=== PATIENT | female | born 1990 | race Caucasian/White ===

== ENCOUNTER 2017-01-17 19:57 | Emergency (ER) | payer MEDICARE, OTHER ==
[~2017-01-17] VITALS: Ht 167.6 cm; Wt 54.4 kg
[~2017-01-17 19:57] MED LIST: ACETAMINOPHEN500 MG PO; AMOXICILLIN500 MG PO; ANAPROX DS550 MG PO; ATIVAN1 MG PO; GEODON60 MG PO; GUAIATUSSIN AC10 ML PO; IBUPROFEN400 MG PO; K-TAB ER20 MEQ PO; OMEPRAZOLE20 MG PO; PROTONIX40 MG PO; PROZAC20 MG PO; TRAMADOL HCL50 MG PO; TRAZODONE HCL100 MG PO; ULTRAM50 MG PO; ZOFRAN ODT4 MG PO
[2017-01-17] MEDS ORDERED: SEROQUEL50 MG PO (20:06)
[2017-01-17] MEDS ORDERED: XANAX0.25 MG PO (20:06)
[2017-01-17] MEDS ORDERED: PROZAC20 MG PO (20:06)
--- NOTE | 2017-01-18 19:12 | EKG ---
[facility] [address] [facility] [place], [place] [address] Signed Sinus tachycardia Otherwise normal ECG No previous ECGs available Confirmed by KAITY HUDSON MD ([id number]) on 01/18/2017 7:12:09 PM Electronically Signed By: KAITY HUDSON MD 01/18/171911 PATIENT NAME: MARIXA HERNANDEZ Electrocardiogram DATE OF : [birth year] PHYSICIAN: KAITY HUDSON MD REPORT #: [id number] REPORT IS CONFIDENTIAL AND NOT TO BE RELEASED WITHOUT AUTHORIZATION
== END 2017-01-17 21:35 | disposition home or self-care (01) ==
LOC: ED 19:57
PROC: 0T9B70Z Drainage of Bladder with Drainage Device, Via Natural or Artificial Opening (ICD-10-PCS; principal; 2017-01-17)
DX: F10.10 Alcohol abuse, uncomplicated (principal); F12.10 Cannabis abuse, uncomplicated; F19.10 Other psychoactive substance abuse, uncomplicated; Y90.6 Blood alcohol level of 120-199 mg/100 ml; F32.9 Major depressive disorder, single episode, unspecified; F41.9 Anxiety disorder, unspecified; F17.200 Nicotine dependence, unspecified, uncomplicated; Z79.899 Other long term (current) drug therapy
CPT/HCPCS: 51701; 80053; 80176; 81001; 84443; 84703; 85025; 93005; 93010; 99284; G0480

== ENCOUNTER 2018-04-25 08:30 | Emergency (ER) | payer MEDICARE, OTHER ==
[~2018-04-25] VITALS: Ht 167.6 cm; Wt 53.5 kg
[~2018-04-25 08:30] MED LIST changes: +SEROQUEL50 MG PO; +XANAX0.25 MG PO
== END 2018-04-25 09:05 | disposition home or self-care (01) ==
LOC: ED 08:30
DX: R05 Cough (principal)

== ENCOUNTER 2018-08-08 16:43 | Emergency (ER) | payer MEDICARE, OTHER ==
[~2018-08-08] VITALS: Ht 167.6 cm; Wt 53.5 kg
[2018-08-08] MEDS ORDERED: ZITHROMAX250 MG PO (19:43)
--- NOTE | 2018-08-08 19:56 | EKG ---
[facility] [address] [facility] [place], [place] [address] Signed Normal sinus rhythm Normal ECG Confirmed by KAITY HUDSON MD ([id number]) on 08/08/2018 7:56:10 PM Electronically Signed By: KAITY HUDSON MD 08/08/181955 PATIENT NAME: MARIXA HERNANDEZ Electrocardiogram DATE OF : [birth year] PHYSICIAN: KAITY HUDSON MD REPORT #: [id number] REPORT IS CONFIDENTIAL AND NOT TO BE RELEASED WITHOUT AUTHORIZATION
== END 2018-08-08 19:48 | disposition home or self-care (01) ==
LOC: ED 16:43
DX: T40.1X1A Poisoning by heroin, accidental (unintentional), initial encounter (principal); J96.90 Respiratory failure, unspecified, unspecified whether with hypoxia or hypercapnia; J69.0 Pneumonitis due to inhalation of food and vomit; F13.10 Sedative, hypnotic or anxiolytic abuse, uncomplicated; F32.9 Major depressive disorder, single episode, unspecified; F41.9 Anxiety disorder, unspecified; F17.200 Nicotine dependence, unspecified, uncomplicated
CPT/HCPCS: 71045; 80053; 84484; 85025; 93005; 93010; 96360; 96361; 99284-25; G0480; J7030

== ENCOUNTER 2018-12-14 13:27 | Emergency (ER) | payer MEDICARE, OTHER ==
[~2018-12-14] VITALS: Ht 167.6 cm; Wt 53.5 kg
[~2018-12-14 13:27] MED LIST changes: +ZITHROMAX250 MG PO
[2018-12-14] MEDS ORDERED: FLUOXETINE HCL20 MG PO (13:47)
[2018-12-14] MEDS ORDERED: QUETIAPINE FUMA50 MG PO (13:47)
[2018-12-14] MEDS ORDERED: NARCAN4 MG NAS (15:05)
--- NOTE | 2018-12-15 13:56 | EKG ---
[facility] [address] [facility] [place], [place] [address] Signed Sinus tachycardia Possible Left atrial enlargement Borderline ECG When compared with ECG of 08-AUG-2018 17:31, No significant change was found Confirmed by DWIGHT SHARMA DO ([id number]) on 12/15/2018 1:56:12 PM Electronically Signed By: DWIGHT SHARMA DO 12/15/18 1356 PATIENT NAME: MARIXA HERNANDEZ Electrocardiogram DATE OF : [birth year] PHYSICIAN: DWIGHT SHARMA DO REPORT #: [id number] REPORT IS CONFIDENTIAL AND NOT TO BE RELEASED WITHOUT AUTHORIZATION
== END 2018-12-14 16:20 | disposition home or self-care (01) ==
LOC: ED 13:27
DX: T40.1X1A Poisoning by heroin, accidental (unintentional), initial encounter (principal); F17.200 Nicotine dependence, unspecified, uncomplicated; F32.9 Major depressive disorder, single episode, unspecified; F41.9 Anxiety disorder, unspecified; Z79.899 Other long term (current) drug therapy
CPT/HCPCS: 71045; 93005; 93010; 99284-25

== ENCOUNTER 2019-07-28 09:46 | Emergency (ER) | payer MEDICARE, OTHER ==
[~2019-07-28] VITALS: Ht 167.6 cm; Wt 53.5 kg
[~2019-07-28 09:46] MED LIST changes: +FLUOXETINE HCL20 MG PO; +NARCAN4 MG NAS; +QUETIAPINE FUMA50 MG PO
--- OUTSIDE RECORDS SUMMARY | 2019-07-28 09:48 | XMS ---
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 [place] has no Care Guidelines for this patient. Kalyn VISIT COUNT (12 MO.) 3 [facility] TOTAL 3 NOTE: Visits indicate total known visits. 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 08/08/2018 16:43 [facility] [place] TYPE: Emergency COMPLAINT: - OD DIAGNOSES: - Major depressive disorder, single episode, unspecified - Poisoning by heroin, accidental (unintentional), initial enco - Nicotine dependence, unspecified, uncomplicated - Pneumonitis due to inhalation of food and vomit - Anxiety disorder, unspecified - Poisoning by heroin, accidental (unintentional), initial enco - Sedative, hypnotic or anxiolytic abuse, uncomplicated - Respiratory failure, unspecified, unspecified whether with hy INPATIENT VISIT TRACKING (12 MO.) No inpatient visits to display in this time frame [email or web address]
== END 2019-07-28 13:20 | disposition home or self-care (01) ==
LOC: ED 09:46
DX: F15.10 Other stimulant abuse, uncomplicated (principal); F11.10 Opioid abuse, uncomplicated; F12.10 Cannabis abuse, uncomplicated; F32.9 Major depressive disorder, single episode, unspecified; F41.9 Anxiety disorder, unspecified; Z79.899 Other long term (current) drug therapy
CPT/HCPCS: 80053; 81001; 85025; 99284; G0480; J7121

== ENCOUNTER 2020-01-30 01:05 | Observation (INO) | payer MEDICARE, OTHER ==
[~2020-01-30] VITALS: Ht 167.6 cm; Wt 55.8 kg
--- OUTSIDE RECORDS SUMMARY | 2020-01-30 01:08 | XMS ---
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 Diego has no Care Guidelines for this patient. Kalyn VISIT COUNT (12 MO.) 2 [facility] TOTAL 2 NOTE: Visits indicate total known visits. ED/UCC VISIT TRACKING (12 MO.) 01/30/2020 01:05 [facility] [place] TYPE: Emergency COMPLAINT: - OVERDOSE 07/28/2019 09:[address] 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
[2020-01-30] MEDS ORDERED: DIAZEPAM10 MG PO (01:17)
--- NOTE | 2020-01-30 03:10 | NUR ---
PT REPORT RECEIVED FROM EMT. TRANSPORTED VIA STRETCHER ON ACID BATH MIXER. UPON ARRIVAL, PT TOO SLEEPY TO TRANSFER HERSELF TO BED.
--- NOTE | 2020-01-30 03:47 | NUR ---
ASSESSMENT COMPLETED. PT NOT PARTICIPATING IN ASSESSMENT DUE TO DROWSINESS. LUNGS SOUND CLEAR, HEART RATE IN THE 80-90S. SPO2 96 PERCENT ON ROOM AIR. PT ORIENTED TO TIME, PLACE, AND SITUATION, BUT VERY DROWSY. AROUSABLE BUT FALLS BACK ASLEEP. RR 8- 12 BREATHS A MINUTE. PT HAS SCATTERED SELF INFLICTED SCARS FROM CUTTING ON BILATERAL ARMS. CALL LIGHT WITHIN REACH. BE ALARM IN PLACE. WILL CLOSELY MONITOR.
--- NOTE | 2020-01-30 04:17 | NUR ---
PT REMAINS SLEEPING. AROUSABLE TO VOICE BUT FALLS BACK ASLEEP. CALL LIGHT WITHIN REACH. BED ALARM IN PLACE.
--- NOTE | 2020-01-30 04:45 | NUR ---
LAB IN ROOM AT THIS TIME FOR BLOOD DRAW
--- NOTE | 2020-01-30 05:49 | NUR ---
posion control updated on patients condition. no new reccomendations.
--- NOTE | 2020-01-30 06:07 | NUR ---
iN ROOM TO ATTEMPT TO WAKE PATIENT TO GET HER TO VOID. PT N OT RESPONDING TO VOICE, OR TOUCH. WITH HARD STERNAL RUB PATIENT EVENTUALLY MOVED ARMS AND ED. PUPILS PINPONT AND FIXED. VITAL SIGNS REMAIN STABLE. RR=12 SPO2 97% ON ROOM AIR. DR HUDSON UPDATED ON CHANGE IN PATIENTS RESPONSIVENESS. NO NEW ORDERS AT THIS TIME. WILL CONITNUE TO MONITOR.
--- NOTE | 2020-01-30 06:46 | NUR ---
bladder scanned patient, 1500 mls of urine detected in the bladder. straight cath produced 1250 mls of urine. pt remains obtunded through the procedure.
--- NOTE | 2020-01-30 07:30 | NUR ---
PATIENT SHIFT REPORT RECIEVED FROM RN CARDIAC REHAB RN. PATIENT RESTING I NBED. PER REPORT PATIENT IS COMPLETELY OBTUNDED WITH PINPOINT PUPILS. MD AWARE. PATIENT IS PROTECTING AIRWAY AT THIS TIME. WILL CONTINEU TO IRMA MACHADO.
--- NOTE | 2020-01-30 08:22 | NUR ---
DISCUSSED WITH DR. HUDSON CONCERNS REGARDING PT'S LEVEL OF CONSCIOUSNESS AND CHANGE FROM ER MENTATION. NO PRN ORDERS FOR NARCAN. PT DOES RESPOND TO PAINFUL STIMULI. NURSING STAFF ABLE TO INSERT ADDITIONAL IV WITHOUT DIFFICULTY.
--- NOTE | 2020-01-30 08:30 | NUR ---
MD TRISTAN ALMODOVAR SEE PATIENT. PATIENT IS RESPONISVE TO PAINFUL STIMULI, BUT DOES NOT OPEN HER EYES AND COMMUNICATE WITH STAFF. PATIENTS RR EVEN AND UNLABORED AT 14 BREATHS PER MINUTE. SPO2 98%. VITALS STABLE. PATIENT ASSESSMENT COMPLETE. BREATH SOUNDS CLEAR AND PATIENT ON RA. BOWEL TONES ACTIVE. CURRENT CUTTING SCABS NOTED ON BILATEAL ARMS AND LEGS. DEBRA SUAREZ PLACED AN 18G IV IN HER LEFT WRIST. WILL CONTINUE TO CLSOELY MONITOR.
--- NOTE | 2020-01-30 10:10 | NUR ---
PATIENT RESTING AT THIS TIME AND NO CHANGES NOTED. PATIENT STILL RESPONDS TO PAINFUL STIMULI. WILL CONTINUE TO CLOSELY MONITOR.
--- NOTE | 2020-01-30 10:42 | NUR ---
call from poison control to check on pt. no further recommendations at this time.
--- NOTE | 2020-01-30 11:00 | NUR ---
PATIENT RESTLESS AND ROLLED OVER TO HER SIDE. PATIENT REMAINS DROWSY, BUT STIRS TO SOUND. NO OTHER NEEDS AT THIS TIME. WILL CONTINEU TO CLOSELY MONITOR.
--- NOTE | 2020-01-30 12:30 | NUR ---
PATIENT RESTING IN BED. PATIENT ASSESSMENT COMPLETED. PATIENT IS MORE ALERT, BUT STILL DROWSY AT THIS TIME. PATIENT PLEASANT WITH STAFF. VITALS REMAIN STABLE. PATIENT RESTING ON HER SIDE AT THIS TIME. WILL CONTINUE TO CLSOELY MONITOR.
--- NOTE | 2020-01-30 13:37 | EKG ---
[facility] [address] [facility] [place], [place] [address] Signed Normal sinus rhythm Normal ECG When compared with ECG of 14-DEC-2018 14:18, No significant change was found Confirmed by KAITY HUDSON MD ([id number]) on 01/30/2020 1:37:13 PM Electronically Signed By: KAITY HUDSON MD 01/30/20 1337 PATIENT NAME: MARIXA HERNANDEZ Electrocardiogram DATE OF : [birth year] PHYSICIAN: KAITY HUDSON MD REPORT #: [id number] REPORT IS CONFIDENTIAL AND NOT TO BE RELEASED WITHOUT AUTHORIZATION
--- NOTE | 2020-01-30 14:30 | NUR ---
PATIENT RESTING IN BED. VITALS STABLE. UPDATED MD ON CARE. WILL UPDATE WHEN PATIENT WAKES UP.
--- NOTE | 2020-01-30 14:50 | NUR ---
PATIENT REPORT GIVEN TO HOSSEIN SUAREZ. PATIENT WOKE WHEN INTRODUCED. PATIENT REFUSES TO NEED TO URINATE AT THIS TIME. UPDATED THAT PATIENT HAS NOT URINATED SINCE THIS AM.
--- NOTE | 2020-01-30 14:50 | NUR ---
REPROT RECEIVED. PT IN BED, RR 14, PT WITH EYES CLSE, WAKES TO SHAKING THEN QUICKLY FALLS BACK ASLEEP. CALL LIGHT IN REACH. VITALS STABLE.
--- NOTE | 2020-01-30 15:11 | NUR ---
THIS NURSE TO BEDSIDE TO BLADDER SCAN D/T PT NOT VOIDING IN 9 HOURS. WOKE PT AND PT AGREEABLE TO ATTEMPT TO VOID IN BSC. PT ABLE TO VOID 1550 ML. PT MORE ALERT NOW AND ABLE TO HAVE CONVERSATIONS. ASSISTED BACK TO BED. CALL LIGHT IN REACH.
[2020-01-30] MEDS ORDERED: BUPRENORPHIN-N1 EACH SL (16:05)
[2020-01-30] MEDS ORDERED: FLUOXETINE HCL40 MG PO (16:06)
--- NOTE | 2020-01-30 16:38 | NUR ---
FRIEND INTO VISIT. PT STILL DROWSY. MOTHER CALLED, PT REQUESTING NO INFORMATION BE PROVIDED TO MOTHER BESIDES, "SHE IS DOING OKAY AND IS SLEEPING". MOTHER UNDERSTANDING OF INABILITY TO PROVIDED INFORMATION.
--- NOTE | 2020-01-30 18:30 | NUR ---
ROUNDED ON PT. PT IN BED WITH EYES CLOSED. WAKES TO VERBAL STIMULI BUT QUICKLY FALLS BACK ASLEEP. VITALS STABLE. CALL LIGHT IN REACH.
--- NOTE | 2020-01-30 19:50 | NUR ---
REPORT RECEIVED FROM HOSSEIN SUAREZ. PT IN BED RESTING WITH EYES CLOSED, RESP EVEN AND LABORED RR 15 HR 63.
--- NOTE | 2020-01-30 20:30 | NUR ---
PT AWAKENS BRIEFLY FOR ASSESSMENT, DENIES NEEDS. BACK TO SLEEP.
--- NOTE | 2020-01-30 23:15 | NUR ---
PT UP TO VOID, 1300ML, BACK TO BED. DENIES PAIN OR NEEDS AT THIS TIME.
--- NOTE | 2020-01-30 23:30 | NUR ---
DR HUDSON UPDATED ON PT CONDITION, PLAN DISCUSSED TO WATCH THE PT OVERNIGHT CLOSELY AND MONITOR.
--- NOTE | 2020-01-31 00:42 | NUR ---
IN TO ASSESS PT, SHE AWAKENS BUT NOT ENOUGH TO OPEN EYES, JUST MUMBLES RESPONSES AND YES OR NO. DENIES PAIN OR SOB. VSS, AFEBRILE.
--- NOTE | 2020-01-31 02:34 | NUR ---
CALL LIGHT ANSWERED. UP TO BSC FOR VOID, BACK IN BED. NO ADDITIONAL REQUESTS.
--- NOTE | 2020-01-31 03:15 | NUR ---
IN TO DO ASSESSMENT. PT WAKES, DENIES NEEDS AND THEN BACK TO SLEEP.
--- NOTE | 2020-01-31 05:30 | NUR ---
PT WAKES UP, ASKING ABOUT PLAN FOR THE DAY. REPORTS THAT SHE IS NORMALLY ON VALIUM AND CIBOXONE AND STATING SHE IS ALREADY STARTING FEEL WITHDRAWAL SYMPTOMS-PT IS DIAPHORETIC AND SEEMS FIDGETY. WILL NOTIFY
--- NOTE | 2020-01-31 06:30 | NUR ---
DR JOHNSON NOTIFIED OF PTS REQUST FOR MEDS-ORDER GIVEN FOR ONE TIME 2MG IV ATIVAN DOSE.
--- NOTE | 2020-01-31 07:56 | NUR ---
Medications reconciled using RX records
--- NOTE | 2020-01-31 07:59 | NUR ---
IN PATIENT'S ROOM FOR ASSESSMENT AND VITALS. PT ORDERED BREAKFAST. PT WILL TAKE A SHOWER OR HAVE BED BATH THIS AM. PT ASKING FOR HER SUBOXONE THIS AM. WILL DISCUSS FURTHER WITH DR. HUDSON. ASSESSMENT COMPLETE. LUNGS CLEAR. PT REPORTS FEELING NAUSEOUS. IVF CONTINUE.
--- NOTE | 2020-01-31 08:02 | NUR ---
DISCUSSED WITH MD PLAN FOR THE DAY. [employer] CALLS BACK, BOOKING OFFICER NAMED NANCI AND GIVEN INFORMATION REGARDING PATIENT'S OVERDOSE. PLAN FOR THEM TO COME IN AND SEE HER IN THIS MORNING AROUND [phone].
--- NOTE | 2020-01-31 10:00 | NUR ---
AWAKE. MEDS GIVEN. IS COOPERATIVE. MONITOR AND IVF DC'D.
--- NOTE | 2020-01-31 10:53 | NUR ---
DISCUSSED PATIENT'S DISCHARGE WITH DR. HUDSON. UPDATED HER ON [facility] REPORT AND HER CLEARANCE FROM THEM. MD TO PLACE DISCHARGE ORDER.
--- NOTE | 2020-01-31 11:32 | NUR ---
PT IS SCHEDULED TO DC LATER TODAY. SHE IS LAYING IN BED, TV ON. PT WELCOMED ME INTO HER RM, SHE IS PLEASANT SAID SHE HAS NO NEEDS AT THIS MOMENT EXCEPT THAT SHE IS TIRED. GAVE BLESSING, SHE THANKED ME, WILL FOLLOW
== END 2020-01-31 11:52 | disposition home or self-care (01) ==
LOC: ED 01:05 → CCU 01:06
PROVIDERS: ADMIT Internal Medicine; ATTEND Internal Medicine
DX: T42.4X1A Poisoning by benzodiazepines, accidental (unintentional), initial encounter (principal); T40.1X1A Poisoning by heroin, accidental (unintentional), initial encounter; R79.89 Other specified abnormal findings of blood chemistry; F32.9 Major depressive disorder, single episode, unspecified; F41.9 Anxiety disorder, unspecified; G47.00 Insomnia, unspecified; Z20.828 Contact with and (suspected) exposure to other viral communicable diseases
CPT/HCPCS: 36415; 51701; 51798; 80048; 80053; 80076; 80176; 81001; 83735; 84443; 84703; 85025; 93005; 93010; 96361; 96365; 96375; 96376; 99285-25; C9803; G0378; G0480; J2060; J3480; J7030; J7121; U0003

== ENCOUNTER 2020-02-20 17:52 | Emergency (ER) | payer MEDICARE, OTHER ==
[~2020-02-20] VITALS: Ht 167.6 cm; Wt 52.2 kg
[~2020-02-20 17:52] MED LIST changes: +BUPRENORPHIN-N1 EACH SL; +DIAZEPAM10 MG PO; +FLUOXETINE HCL40 MG PO
--- OUTSIDE RECORDS SUMMARY | 2020-02-20 17:56 | XMS ---
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 01/31/2020-Current PHONE: [phone] Diego has no Care Guidelines for this patient. Care History Medical/Surgical 01/31/2020 [facility] - Patient is currently established with [facility]. If patient is seen in the ED during business hours. Please contact CHWs at [facility]. Care Recommendation: If this patient has had 5 or more Emergency Department visits in the last 12 months.\T\nbsp; Patient will require education on the scope and purpose of the ED as an acute care provider not a Primary Care Provider and should not be utilized for chronic conditions.\T\nbsp; These are guidelines and the provider should exercise clinical judgment when providing care. 01/31/2020 [facility] Appropriate use of ED.\T\nbsp; [facility]D - Aging and People with Disabilities has been notified for home assessment. E.D. VISIT COUNT (12 MO.) [address] [facility] TOTAL 3 NOTE: Visits indicate total known visits. ED/UCC VISIT TRACKING (12 MO.) 02/20/2020 17:53 [facility] [place] TYPE: Emergency COMPLAINT: - COUGHING UP BLOOD 01/30/2020 01:05 [facility] [place] TYPE: Emergency COMPLAINT: - OVERDOSE 07/28/2019 09:46 [facility] [place] TYPE: Emergency COMPLAINT: - SEIZURE DIAGNOSES: - Anxiety disorder, unspecified - Other stimulant abuse, uncomplicated - Opioid abuse, uncomplicated - Other group home (current) drug therapy - Cannabis abuse, uncomplicated - Unspecified convulsions - Major depressive disorder, single episode, unspecified INPATIENT VISIT TRACKING (12 MO.) 01/30/2020 01:06 [facility] [place] TYPE: Observation COMPLAINT: - MULTIDRUG OVERDOSE DIAGNOSES: - Poisoning by benzodiazepines, accidental (unintentional), ini - Poisoning by heroin, accidental (unintentional), initial enco - Insomnia, unspecified - Other specified abnormal findings of blood chemistry - Poisoning by unspecified antidepressants, accidental (uninten - Anxiety disorder, unspecified - Major depressive disorder, single episode, unspecified - Contact with and (suspected) exposure to other viral communic [email or web address]
[2020-02-20] MEDS ORDERED: SEROQUEL100 MG PO (18:24)
== END 2020-02-20 19:52 | disposition home or self-care (01) ==
LOC: ED 17:52
DX: J02.9 Acute pharyngitis, unspecified (principal); R04.2 Hemoptysis; R32 Unspecified urinary incontinence; F32.9 Major depressive disorder, single episode, unspecified; F41.9 Anxiety disorder, unspecified; F17.200 Nicotine dependence, unspecified, uncomplicated; Z88.5 Allergy status to narcotic agent; Z79.899 Other long term (current) drug therapy
CPT/HCPCS: 71045; 80053; 81001; 84703; 85025; 87880; 99283-25

== ENCOUNTER 2023-01-12 09:29 | Emergency (ER) | payer MEDICARE, OTHER ==
[~2023-01-12] VITALS: Ht 167.6 cm; Wt 54.4 kg
[~2023-01-12 09:29] MED LIST changes: +SEROQUEL100 MG PO
--- OUTSIDE RECORDS SUMMARY | 2023-01-12 09:32 | XMS ---
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 Care History Medical/Surgical 01/31/2020 [facility] - Patient is currently established with [facility]. If patient is seen in the ED during business hours. Please contact CHWs at [facility]. Care Recommendation: If this patient has had 5 or more Emergency Department visits in the last 12 months.\T\nbsp; Patient will require education on the scope and purpose of the ED as an acute care provider not a Primary Care Provider and should not be utilized for chronic conditions.\T\nbsp; These are guidelines and the provider should exercise clinical judgment when providing care. 01/31/2020 [facility] Appropriate use of ED.\T\nbsp; APD - Aging and People with Disabilities has been notified for home assessment. E.D. VISIT COUNT (12 MO.) 1 [facility] TOTAL 1 NOTE: Visits indicate total known visits. ED/UCC VISIT TRACKING (12 MO.) 01/12/2023 09:30 [facility] [place] TYPE: Emergency COMPLAINT: - COUGH INPATIENT VISIT TRACKING (12 MO.) No inpatient visits to display in this time frame [email or web address]
[2023-01-12 10:34] LABS: INFLUENZA B NAA NEGATIVE (NEGATIVE); RESPIRATORY SYNCYTIAL VIR NAA NEGATIVE (NEGATIVE)
[2023-01-12 12:31] VITALS: BP 103/76
== END 2023-01-12 12:32 | disposition home or self-care (01) ==
LOC: ED 09:29
PROVIDERS: Emergency Medicine
DX: J06.9 Acute upper respiratory infection, unspecified (principal); F17.200 Nicotine dependence, unspecified, uncomplicated; Z88.5 Allergy status to narcotic agent; Z79.899 Other long term (current) drug therapy; Z20.822 Contact with and (suspected) exposure to COVID-19
CPT/HCPCS: 87502; 99283; C9803; U0002